=== PATIENT | female | born 1970 | race Caucasian/White ===

== ENCOUNTER 2017-03-06 21:20 | Emergency (ER) | payer OTHER ==
[2017-03-06] MEDS ORDERED: Sodium Chloride 0.9% 10 ML Syringe FLUSH PRN (21:35)
[2017-03-06] MEDS ORDERED: Ondansetron 4 MG/2 ML SDV IVPUSH ONE (21:37)
[2017-03-06] MEDS ORDERED: Sodium Chloride 0.9% 1,000 ML IV SCH (21:45)
--- NOTE | 2017-03-06 21:48 | EDM.PDOC ---
ED HPI HEADACHE COMPLAINT - General Chief Complaint: Headache Stated Complaint: Headache Time Seen by Provider: 03/06/17 21:33 Source of Information: Reports: Patient, Family, RN, RN notes reviewed History Limitations: Reports: No limitations - History of Present Illness INITIAL COMMENTS - FREE TEXT/NARRATIVE: Patient presents to the emergency room at [facility] complaining of a headache, nausea, and photophobia. The patient states that the headache began earlier this morning. The patient states the headache began in the frontal region and has progressed to a generalized headache. The patient states that this is the worst headache ever. The patient has a long-standing history of headaches/migraines. The patient is currently taking Imitrex. The patient did take an Imitrex today which did not help. The patient states that her vision is blurry and she has concurrent photophobia. The patient feels very nauseated. The patient has not vomited. The patient states that her balance is off. The patient has required assistance with ambulation today. The patient complains of severe dizziness that is very positional. 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: Other medication(s) (Imitrex) - Related Data Allergies/ADRs: Allergies Allergy/AdvReac Type Severity Reaction Status Date / Time erythromycin base Allergy Nausea and Verified 03/06/17 21:39 [Erythromycin Base] Vomiting hydrocodone Allergy Headache Verified 03/06/17 21:39 latex Allergy Swelling Verified 03/06/17 21:39 Penicillins Allergy Nausea and Verified 03/06/17 21:39 Vomiting Home Meds: Home Meds Cholecalciferol (Vitamin D3) [Vitamin D] 1,000 unit PO DAILY 08/18/14 [History] ClonazePAM [KlonoPIN] 1 mg PO BID 08/18/14 [History] Cyanocobalamin (Vitamin B-12) [Vitamin B-12] 500 mcg PO DAILY 08/18/14 [History] Fish Oil/Borage/Flax/Om3,6,9#1 [[place] 3-6-9 Complex Softgel] 1 each PO DAILY 10/ 10/14 [History] Gluc HCl/Csa/Savage Hy/Hyalur Ac [Glucosamine Chondroitin] 1 each PO DAILY [History] Multivitamin [Multivitamins] 1 each PO DAILY 08/18/14 [History] SUMAtriptan Succinate [Imitrex] 100 mg PO Q6HR PRN 08/18/14 [History] traZODone 300 mg PO BEDTIME 08/18/14 [History] Celecoxib [CeleBREX] 100 mg PO BID 10/16/16 [History] buPROPion [Wellbutrin XL] 150 mg PO BEDTIME 10/16/16 [History] Social & Family History - Family History Family Medical History: Noncontributory - Tobacco Use Smoking Status *Q: Current Every Day Smoker Years of Tobacco use: 30 Packs/Tins Daily: 1 - Alcohol Use Days Per Week of Alcohol Use: 0 - Recreational Drug Use Recreational Drug Use: No ED ROS GENERAL - Review of Systems Review Of Systems: See Below Constitutional: Reports: weakness, decreased appetite. Denies: fever, chills HEENT: Reports: Eye pain, Vertigo, Vision change Respiratory: Denies: Shortness of Breath, Cough Cardiovascular: Denies: Chest pain, Palpitations GI/Abdominal: Reports: Nausea. Denies: Abdominal pain, Diarrhea, Vomiting Skin: Reports: no symptoms Neurological: Reports: Dizziness, Headache, Difficulty Walking, Weakness. Denies: Numbness, Paresthesia, Tingling - Physical Exam Exam: See Below Exam Limited By: No limitations General Appearance: alert, no apparent distress Eye Exam: bilateral eye: EOMI, normal inspection, PERRL Head Exam: atraumatic, normocephalic Neck: supple Respiratory/Chest: no respiratory distress, lungs clear, normal breath sounds Cardiovascular: regular rate, rhythm GI/Abdominal: normal bowel sounds, soft, non tender Neuro Exam (Abbreviated): alert, slow to respond, abnormal gait Skin Exam: Warm, Dry, Intact, Normal color, No rash Course - Vital Signs Last Recorded V/S: Last Vital Signs Temp 36.6 C 03/06/17 21:20 Pulse 74 03/06/17 21:20 Resp 16 03/06/17 21:20 BP 152/75 H 03/06/17 21:20 Pulse Ox 97 03/06/17 21:20 - Orders/Labs/Meds Orders: Active Orders 24 hr Category Date Time Status Head wo Cont [CT] Stat Exams 03/06/17 21:34 Taken BENZODIAZEPINE CONF (LCMSMS) Stat Lab 03/06/17 21:58 Received Sodium Chloride 0.9% [Normal Saline] 1,000 ml Med 03/06/17 21:45 Active IV ASDIRECTED Sodium Chloride 0.9% [Saline Flush] Med 03/06/17 21:35 Active 10 ml FLUSH ASDIRECTED PRN Peripheral IV Insertion Adult [OM.PC] Routine Oth 03/06/17 21:35 Ordered Medication Orders Sodium Chloride (Normal Saline) 1,000 mls @ 999 mls/hr IV ASDIRECTED TOSHA Last Admin: 03/06/17 22:10 Dose: 999 mls/hr Sodium Chloride (Saline Flush) 10 ml FLUSH ASDIRECTED PRN PRN Reason: Keep Vein Open Labs: Laboratory Tests 03/06/17 03/06/17 03/06/17 Range/Units 21:58 21:59 22:08 WBC 9.3 (4.0-10.0) x10^3/uL RBC 4.10 (4.00-5.50) x10^6/uL Hgb 12.2 (12.0-16.0) g/dL Hct 37.0 (33.0-47.0) % MCV 90.2 (78.0-93.0) fL MCH 29.8 (26.0-32.0) pg MCHC 33.0 (32.0-36.0) g/dL RDW Coeff of Carlos 12.2 (10.0-15.0) % Plt Count 229 (130-400) x10^3/uL Neut % (Auto) 59.5 (50.0-80.0) % Lymph % (Auto) 28.8 (25.0-50.0) % [place] % (Auto) 8.4 (2.0-11.0) % Eos % (Auto) 2.8 (0.0-4.0) % Baso % (Auto) 0.5 (0.2-1.2) % ESR 11 (0-21) mm/hr Sodium (136-145) mmol/L Potassium (3.5-5.1) mmol/L Chloride (98-107) mmol/L Carbon Dioxide (21-32) mmol/L BUN (7-18) mg/dL Creatinine (0.55-1.02) mg/dL Est Cr Clr Drug Dosing mL/min Estimated GFR (MDRD) Glucose (74-106) mg/dL Calcium (8.5-10.1) mg/dL C-Reactive Protein (<=0.9) mg/dL Urine Color Yellow (YELLOW) Urine Appearance Cloudy H (CLEAR) Urine pH 6.5 (5.0-8.0) Ur Specific [place] 1.025 Urine Protein Negative (NEGATIVE) mg/dL Urine Glucose (UA) Negative (NEGATIVE) mg/dL Urine Ketones Negative (NEGATIVE) mg/dL Urine Occult Blood Trace-intact H (NEGATIVE) Urine Nitrite Negative (NEGATIVE) Urine Bilirubin Negative (NEGATIVE) Urine Urobilinogen 1.0 (0.2) EU/dL Ur Leukocyte Esterase Negative (NEGATIVE) Urine RBC 5-10 H (NOT SEEN) /HPF Urine WBC 0-5 (NOT SEEN) /HPF Ur Squamous Epith Cells Moderate H (NEGATIVE) /HPF Calcium Oxalate Crystal Many H (NEGATIVE) /HPF Urine Mucus Few H (NEGATIVE) /LPF Urine Opiates Screen Negative (NEGATIVE) Ur Buprenorphine Scrn Negative (NEGATIVE) Ur Oxycodone Screen Negative (NEGATIVE) Urine Methadone Screen Negative (NEGATIVE) Ur Barbiturates Screen Negative (NEGATIVE) Ur Tricyclics Screen Negative (NEGATIVE) Ur Amphetamine Screen Negative (NEGATIVE) U Methamphetamines Scrn Negative (NEGATIVE) Urine MDMA Screen Negative (NEGATIVE) U Benzodiazepines Scrn Positive H (NEGATIVE) U Cocaine Metab Screen Negative (NEGATIVE) U Marijuana (THC) Screen Negative (NEGATIVE) 03/06/17 Range/Units 22:08 WBC (4.0-10.0) x10^3/uL RBC (4.00-5.50) x10^6/uL Hgb (12.0-16.0) g/dL Hct (33.0-47.0) % MCV (78.0-93.0) fL MCH (26.0-32.0) pg MCHC (32.0-36.0) g/dL RDW Coeff of Carlos (10.0-15.0) % Plt Count (130-400) x10^3/uL Neut % (Auto) (50.0-80.0) % Lymph % (Auto) (25.0-50.0) % [place] % (Auto) (2.0-11.0) % Eos % (Auto) (0.0-4.0) % Baso % (Auto) (0.2-1.2) % ESR (0-21) mm/hr Sodium 144 (136-145) mmol/L Potassium 3.7 (3.5-5.1) mmol/L Chloride 108 H (98-107) mmol/L Carbon Dioxide 29 (21-32) mmol/L BUN 18 (7-18) mg/dL Creatinine 0.9 (0.55-1.02) mg/dL Est Cr Clr Drug Dosing 77.11 mL/min Estimated GFR (MDRD) > 60 Glucose 102 (74-106) mg/dL Calcium 8.3 L (8.5-10.1) mg/dL C-Reactive Protein 0.3 (<=0.9) mg/dL Urine Color (YELLOW) Urine Appearance (CLEAR) Urine pH (5.0-8.0) Ur Specific [place] Urine Protein (NEGATIVE) mg/dL Urine Glucose (UA) (NEGATIVE) mg/dL Urine Ketones (NEGATIVE) mg/dL Urine Occult Blood (NEGATIVE) Urine Nitrite (NEGATIVE) Urine Bilirubin (NEGATIVE) Urine Urobilinogen (0.2) EU/dL Ur Leukocyte Esterase (NEGATIVE) Urine RBC (NOT SEEN) /HPF Urine WBC (NOT SEEN) /HPF Ur Squamous Epith Cells (NEGATIVE) /HPF Calcium Oxalate Crystal (NEGATIVE) /HPF Urine Mucus (NEGATIVE) /LPF Urine Opiates Screen (NEGATIVE) Ur Buprenorphine Scrn (NEGATIVE) Ur Oxycodone Screen (NEGATIVE) Urine Methadone Screen (NEGATIVE) Ur Barbiturates Screen (NEGATIVE) Ur Tricyclics Screen (NEGATIVE) Ur Amphetamine Screen (NEGATIVE) U Methamphetamines Scrn (NEGATIVE) Urine MDMA Screen (NEGATIVE) U Benzodiazepines Scrn (NEGATIVE) U Cocaine Metab Screen (NEGATIVE) U Marijuana (THC) Screen (NEGATIVE) Meds: Medications Generic Name Dose Route Start Last Admin Trade Name Freq PRN Reason Stop Dose Admin Sodium Chloride 1,000 mls @ 999 mls/hr 03/06/17 21:45 03/06/17 22:10 Normal Saline IV 999 mls/hr ASDIRECTED TOSHA Administration Sodium Chloride 10 ml 03/06/17 21:35 Saline Flush FLUSH ASDIRECTED PRN Keep Vein Open Discontinued Medications Generic Name Dose Route Start Last Admin Trade Name Ame PRN Reason Stop Dose Admin Chlorpromazine HCl 50 mg 03/06/17 22:37 03/06/17 22:40 Thorazine IM 03/06/17 22:38 50 mg ONETIME ONE Administration Chlorpromazine HCl 50 mg/ 52 mls @ 50 mls/hr 03/06/17 22:27 Sodium Chloride IV 03/06/17 23:29 ONETIME ONE Ondansetron HCl 4 mg 03/06/17 21:37 03/06/17 22:12 Zofran IVPUSH 03/06/17 21:38 4 mg ONETIME ONE Administration - Radiology Interpretation Free Text/Narrative:: See scanned results CT Results Date: 03/06/17 CT Results Time: 22:46 Departure - Departure Time of Disposition: 23:01 Disposition: Home, Self-Care 01 Condition: good Clinical Impression: Vestibular migraine, Nausea Instructions: Migraine Headache, Nausea, Adult, [id number] Referrals: Brianna Rojas PA [Ordering Only Provider] - Forms: ED Department Discharge Additional Instructions: 1. Stay well hydrated and rest 2. May continue taking Imitrex 3. Avoid cigarette smoke and other environmental inhalation irritants 4. Avoid stimulating activities 5. See your Primary as symptoms warrant - Problem List Review Problem List Initiated/Reviewed/Updated: Yes - My Orders Last 24 Hours: My Active Orders 03/06/17 21:34 Head wo Cont [CT] Stat 03/06/17 21:35 Sodium Chloride 0.9% [Saline Flush] 10 ml FLUSH ASDIRECTED PRN Peripheral IV Insertion Adult [OM.PC] Routine 03/06/17 21:45 Sodium Chloride 0.9% [Normal Saline] 1,000 ml IV ASDIRECTED 03/06/17 21:58 BENZODIAZEPINE CONF (LCMSMS) Stat - Assessment/Plan Last 24 Hours: My Active Orders 03/06/17 21:34 Head wo Cont [CT] Stat 03/06/17 21:35 Sodium Chloride 0.9% [Saline Flush] 10 ml FLUSH ASDIRECTED PRN Peripheral IV Insertion Adult [OM.PC] Routine 03/06/17 21:45 Sodium Chloride 0.9% [Normal Saline] 1,000 ml IV ASDIRECTED 03/06/17 21:58 BENZODIAZEPINE CONF (LCMSMS) Stat
[2017-03-06 22:05] VITALS: BP 152/75
[2017-03-06 22:28] LABS: CHLORIDE,CL 108 mmol/L (98-107); SODIUM,NA 144 mmol/L (136-145)
== END 2017-03-06 23:13 | disposition home or self-care (01) ==
LOC: VM.ED 21:20
DX: G43.109 Migraine with aura, not intractable, without status migrainosus (principal); F17.210 Nicotine dependence, cigarettes, uncomplicated; Z88.1 Allergy status to other antibiotic agents; Z88.0 Allergy status to penicillin; Z88.5 Allergy status to narcotic agent; Z91.040 Latex allergy status; Z79.899 Other long term (current) drug therapy
CPT/HCPCS: 36415; 70450; 80048; 80305; 81001; 85025; 85652; 86140; 96361; 96372; 96374; 99284; G0480; J2405; J3230; J7030

== ENCOUNTER 2017-05-06 09:13 | Emergency (ER) | payer OTHER ==
[2017-05-06 09:26] VITALS: BP 121/66
[2017-05-06] MEDS ORDERED: GI Cocktail Oral Solution 30 ML PO ONE (09:48)
[2017-05-06 10:22] LABS: CHLORIDE,CL 106 mmol/L (98-107); SODIUM,NA 141 mmol/L (136-145)
--- NOTE | 2017-05-07 22:35 | ER ---
Date of Service: 05/06/2017 SUBJECTIVE: Shelbie presents to the emergency room with chest pain that she began experiencing approximately 50 minutes prior to coming to the ER. 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 She states that she has been experiencing some discomfort since she took her medications this morning. She noticed that she has had difficulties with swallowing since that time. The patient states that she has a history of costochondritis and states the discomfort is similar to that. Again, she states that she does have difficulties with swallowing water due to the fact that it feels like there is a possible obstruction in her distal esophagus and due to increased discomfort with swallowing. PAST MEDICAL HISTORY: 1. Migraine headaches. 2. Bariatric surgery. REVIEW OF SYSTEMS: Denies any fever, chills, sore throat, congestion, nausea, melena, hematochezia, or hematemesis. Again, she is on nauseated and feels as though she is going to vomit when she swallows. PHYSICAL EXAMINATION: General: This is a 47-year-old female patient, who is in no acute distress. Vital Signs: Temperature is 36.8, pulse rate is 69, blood pressure is 121/66, respiratory rate 16, O2 saturations 95%. Skin: Warm, pink, and dry. HEENT. Head is normocephalic, atraumatic. Mouth, oral mucosa is moist. Lungs: Clear to auscultation. Heart: Regular rate and rhythm. Abdomen: Soft, tender in the epigastrium. There is no masses noted. There is no hepatosplenomegaly noted. Extremities: Without edema. Neurologic: She is alert, oriented, answers all questions appropriately. Her speech is fluent. Her gait is within normal limits. DIAGNOSTIC DATA: A 12-lead EKG was obtained showing a sinus rhythm without any acute ST or T-wave abnormalities. PA and lateral chest x-ray was obtained. There was no evidence of any acute pathology. LABORATORY DATA: WBCs 7.6, hemoglobin is 11.8, platelets are 242. Coags; PT is 9.7, INR is 0.9. Chemistry; sodium is 141, potassium is 4.1, chloride is 106, bicarb is 29, BUN is 20, creatinine is 0.8, glucose is 100, calcium is 9.0, corrected calcium is 9.4, total bilirubin is 0.5. AST is 10, ALT is 16, alkaline phosphatase is 20, troponin is 0.00. EMERGENCY ROOM COURSE: The patient was given a GI cocktail and prior to this was given several glasses of water. She did exhibit great difficulty with swallowing the water and decision was made again to subsequently gave the patient a GI cocktail. She stated that this did help significantly with the discomfort. ASSESSMENT: Esophagitis versus partial esophageal obstruction. PLAN: The patient was advised to take her medications one at a time. I also did advise her to follow up with her primary care provider as she likely will require an evaluation for her difficulties with swallowing with an upper endoscopy. She is to return if she develops any chest pain, shortness of breath or other worrisome signs or symptoms. All questions were answered. MWK: 05/07/2017 15:50:13 MODL: 05/07/2017 22:26:51 /[id number]
== END 2017-05-06 10:51 | disposition home or self-care (01) ==
LOC: VM.ED 09:13
DX: R07.9 Chest pain, unspecified (principal); G43.909 Migraine, unspecified, not intractable, without status migrainosus; Z98.84 Bariatric surgery status
CPT/HCPCS: 36415; 71020; 80053; 84484; 85025; 85610; 93005; 99284; A9270; 99283-GF

== ENCOUNTER 2017-06-05 13:05 | Emergency (ER) | payer OTHER ==
[2017-06-05 13:29] VITALS: BP 126/70
[2017-06-05] MEDS ORDERED: HYDROmorphone 1 MG/ML Syringe IM ONE (13:31)
[2017-06-05] MEDS ORDERED: Diazepam 5 MG Tab PO ONE (14:10)
--- NOTE | 2017-06-05 14:27 | EDM.PDOC ---
ED HPI GENERAL MEDICAL PROBLEM - General Chief Complaint: Lower Extremity Injury/Pain Stated Complaint: TWISTED KNEE Time Seen by Provider: 06/05/17 13:24 Source of Information: Reports: Patient History Limitations: Reports: No Limitations - History of Present Illness INITIAL COMMENTS - FREE TEXT/NARRATIVE: Patient was up on a bed at home trying to do some kind of work or change a light bulb in a light above her bed. She states that she twisted her left knee during this and felt and heard something pop. No prior injury to her left knee. She is unable to bend her knee and comes in with her knee in a brace. She did not hit her head, does not have chest pain, no SOB, no change in LOC, no nausea, vomiting, or abdominal pain. Onset: Today Onset Date: 06/05/17 Location: Reports: Lower Extremity, Left Quality: Reports: Sharp Severity: Moderate Improves with: Reports: Medication Worsens with: Reports: Movement Left Knee Pain Score (Numeric/FACES): 10 - Related Data Allergies Allergy/AdvReac Type Severity Reaction Status Date / Time erythromycin base Allergy Nausea and Verified 06/05/17 13:33 [Erythromycin Base] Vomiting hydrocodone Allergy Headache Verified 06/05/17 13:33 latex Allergy Swelling Verified 06/05/17 13:33 Penicillins Allergy Nausea and Verified 06/05/17 13:33 Vomiting Home Meds: Home Meds Cholecalciferol (Vitamin D3) [Vitamin D] 1,000 unit PO DAILY 08/18/14 [History] ClonazePAM [KlonoPIN] 1 mg PO BID 08/18/14 [History] Cyanocobalamin (Vitamin B-12) [Vitamin B-12] 500 mcg PO DAILY 08/18/14 [History] Fish Oil/Borage/Flax/Om3,6,9#1 [[place] 3-6-9 Complex Softgel] 1 each PO DAILY 08/22 [History] Gluc HCl/Csa/Savage Hy/Hyalur Ac [Glucosamine Chondroitin] 1 each PO DAILY [History] Multivitamin [Multivitamins] 1 each PO DAILY 08/18/14 [History] SUMAtriptan Succinate [Imitrex] 100 mg PO Q6HR PRN 08/18/14 [History] traZODone 300 mg PO BEDTIME 08/18/14 [History] Celecoxib [CeleBREX] 100 mg PO BID 12/08/16 [History] buPROPion [Wellbutrin XL] 150 mg PO BEDTIME 10/16/16 [History] Past Medical History Neurological History: Reports: Migraines - Past Surgical History GI Surgical History: Reports: Bariatric Procedure Social & Family History - Family History Family Medical History: Noncontributory - Tobacco Use Smoking Status *Q: Current Every Day Smoker Years of Tobacco use: 30 Packs/Tins Daily: 0.3 - Alcohol Use Days Per Week of Alcohol Use: 0 - Recreational Drug Use Recreational Drug Use: No Review of Systems - Review of Systems Review Of Systems: See Below Constitutional: Reports: No Symptoms Eyes: Reports: No Symptoms Ears: Reports: No Symptoms Nose: Reports: No Symptoms Mouth/Throat: Reports: No Symptoms Respiratory: Reports: No Symptoms Cardiovascular: Reports: No Symptoms GI/Abdominal: Reports: No Symptoms Genitourinary: Reports: No Symptoms Musculoskeletal: Reports: Leg Pain (left knee pain) Skin: Reports: No Symptoms Neurological: Reports: No Symptoms Psychiatric: Reports: No Symptoms ED EXAM, GENERAL - Physical Exam Exam: See Below Exam Limited By: No Limitations General Appearance: Alert, WD/WN, No Apparent Distress Eye Exam: Bilateral Eye: EOMI, PERRL Head: Atraumatic, Normocephalic Peripheral Pulses: 2+: Posterior Tibial (L), Posterior Tibial (R), Dorsalis Pedis (L), Dorsalis Pedis (R) Extremities: Joint Swelling, Leg Pain, Limited Range of Motion Neurological: Alert, Oriented, CN II-XII Intact Psychiatric: Normal Affect, Normal Mood Skin Exam: Warm, Dry, Intact, Normal Color Lymphatic: No Adenopathy Course - Vital Signs Last Recorded V/S: Last Vital Signs Temp 36.6 C 06/05/17 13:15 Pulse 71 06/05/17 13:15 Resp 16 06/05/17 13:15 BP 126/70 06/05/17 13:15 Pulse Ox 97 06/05/17 13:15 - Re-Assessments/Exams Free Text/Narrative Re-Assessment/Exam: 06/05/17 14:40 x-rays reviewed, no acute fracture process identified Departure - Departure Time of Disposition: 14:35 Disposition: Home, Self-Care 01 Condition: Good Clinical Impression: Sprain of left knee/leg - Discharge Information Instructions: Knee Sprain, [id number], Knee Immobilizer, [id number] Forms: ED Department Discharge Additional Instructions: Follow up with your primary provider next week Over the take ibuprofen, hydrocodone and flexeril as ordered. Elevate your knee and use ice for 30 minute times then remove If you are still experiencing pain and swelling Thursday, certainly call your primary for possible MRI to investigate ligament, cartilage, or other soft tissue injury. You may work; however you should not be lifting or transferring individuals as this can and will further injure your knee. If there is alternative work to be done there, this may be to your benefit to perform these non physical duties until your knee is fully without injury or pain. Please call with any questions or concerns. - Problem List & Annotations (1) Sprain of left knee/leg SNOMED Code(s): 977448966 Code(s): S83.92XA - SPRAIN OF UNSPECIFIED SITE OF LEFT KNEE, INITIAL ENCOUNTER Status: Acute Priority: Low Current Visit: Yes Qualifiers: Encounter type: initial encounter Qualified Code(s): S83.92XA - Sprain of unspecified site of left knee, initial encounter - Assessment/Plan Assessment:: left knee sprain Plan: Follow up with your primary provider next week Over the take ibuprofen, hydrocodone and flexeril as ordered. Elevate your knee and use ice for 30 minute times then remove If you are still experiencing pain and swelling Thursday, certainly call your primary for possible MRI to investigate ligament, cartilage, or other soft tissue injury. You may work; however you should not be lifting or transferring individuals as this can and will further injure your knee. If there is alternative work to be done there, this may be to your benefit to perform these non physical duties until your knee is fully without injury or pain. Please call with any questions or concerns.
== END 2017-06-05 15:05 | disposition home or self-care (01) ==
LOC: VM.ED 13:05
DX: S83.92XA Sprain of unspecified site of left knee, initial encounter (principal); G43.909 Migraine, unspecified, not intractable, without status migrainosus; F17.210 Nicotine dependence, cigarettes, uncomplicated; Z88.1 Allergy status to other antibiotic agents; Z88.5 Allergy status to narcotic agent; Z91.040 Latex allergy status; Z88.0 Allergy status to penicillin; Z98.84 Bariatric surgery status; X50.9XXA Other and unspecified overexertion or strenuous movements or postures, initial encounter; Y92.003 Bedroom of unspecified non-institutional (private) residence as the place of occurrence of the external cause
CPT/HCPCS: 73560; 96372; 99283; A9270; J1170

== ENCOUNTER 2018-08-09 09:47 | Day surgery (SDC) | payer OTHER ==
[~2018-08-09 09:47] MED LIST: Lactated Ringers 1,000 ML IV SCH
[2018-08-09] MEDS ORDERED: Propofol 200 MG/20 ML SDV ONE ×2 (10:00→12:36)
[2018-08-09] MEDS ORDERED: fentaNYL 100 MCG/2 ML SDV ONE (10:00)
[2018-08-09 13:42] VITALS: BP 126/48
--- NOTE | 2018-08-09 13:46 | OR ---
PREOP DIAGNOSIS: Lower abdominal pain. POSTOP DIAGNOSIS: Lower abdominal pain. PROCEDURE PERFORMED: Colonoscopy. INDICATION: The patient is a 48-year-old female, with history of abdominal pain, who presents for colonoscopy for further evaluation. PROCEDURE DETAILS: Procedure done in the endoscopy suite. Sedation was given per Anesthesia. She was placed in left lateral position. First, a rectal exam was done, and was normal. Scope was introduced in the rectum and slowly advanced to the rectum, sigmoid, descending, transverse, and ascending colon until the cecum was reached. The prep was extremely poor and there was a large amount of cellulose material scattered throughout the colon, which made visualization difficult. It would be possible to miss a small polyp during the procedure. Upon reaching the cecum, scope was slowly withdrawn looking all mucosal surface on the way out. No mucosal abnormality or lesions were noted within the scope of a poor prep. FINAL DIAGNOSIS: Sigmoid diverticulosis. Remainder of the exam was normal. BKD: 08/09/2018 12:53:00 MODL: 08/09/2018 13:38:13 /[id number]
== END 2018-08-09 13:50 | disposition home or self-care (01) ==
LOC: VM.SDS 09:47
PROVIDERS: ATTEND Surgery
DX: R10.30 Lower abdominal pain, unspecified (principal); K57.30 Diverticulosis of large intestine without perforation or abscess without bleeding; F41.8 Other specified anxiety disorders; M17.0 Bilateral primary osteoarthritis of knee; K21.9 Gastro-esophageal reflux disease without esophagitis; G47.00 Insomnia, unspecified; G43.009 Migraine without aura, not intractable, without status migrainosus; E66.9 Obesity, unspecified; Z68.30 Body mass index [BMI] 30.0-30.9, adult; Z79.899 Other long term (current) drug therapy; Z88.0 Allergy status to penicillin; Z88.1 Allergy status to other antibiotic agents; Z91.040 Latex allergy status; Z91.048 Other nonmedicinal substance allergy status
CPT/HCPCS: J2704; J3010; J7120

== ENCOUNTER 2019-04-19 20:04 | Emergency (ER) | payer OTHER ==
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
[2019-04-19 21:15] VITALS: BP 136/71
== END 2019-04-19 21:24 | disposition home or self-care (01) ==
LOC: VM.ED 20:04 → EEVIPCON 20:04 → VM.ED 21:24
DX: R45.851 Suicidal ideations (principal); K21.9 Gastro-esophageal reflux disease without esophagitis; M19.90 Unspecified osteoarthritis, unspecified site; F41.9 Anxiety disorder, unspecified; E66.9 Obesity, unspecified; Z88.0 Allergy status to penicillin; Z91.040 Latex allergy status; Z88.8 Allergy status to other drugs, medicaments and biological substances; Z91.09 Other allergy status, other than to drugs and biological substances; Z79.899 Other long term (current) drug therapy
CPT/HCPCS: 99284-GF; 99285

== ENCOUNTER 2019-09-30 20:15 | Emergency (ER) | payer OTHER ==
--- NOTE | 2019-09-30 20:33 | EDM.PDOC ---
ED HPI GENERAL MEDICAL PROBLEM - General Chief Complaint: Lower Extremity Injury/Pain Stated Complaint: foot injury Time Seen by Provider: 09/30/19 20:22 Source of Information: Reports: Patient History Limitations: Reports: No Limitations - History of Present Illness INITIAL COMMENTS - FREE TEXT/NARRATIVE: Patient comes into the emergency department tonight with complaints of left foot pain. Patient was at a local bar and was walking to the jukebox when she tripped over a lip in the floor and fell forward she states that she twisted the top of her foot causing painful sensation right away. She denies hearing any popping sensation but states she did notice pain immediately. He was able to walk in on her own will without assistance but states it is extremely painful. She states she has limited range of motion in the left foot due to the pain and discomfort. She denies any numbness or tingling in that lower extremity she also denies any shooting pain or weakness in that lower extremity. She denies hitting her head or injuring any other part of her body. She admits to having 2 drinks at the bar prior to coming to the ER. Last ate 2 hours ago and last drank any liquid about 15 minutes ago. Onset: Sudden Location: Reports: Lower Extremity, Left Quality: Reports: Sharp, Throbbing Improves with: Reports: Cold Therapy, Immobilization Worsens with: Reports: Movement Associated Symptoms: Reports: No Other Symptoms - Related Data Allergies Allergy/AdvReac Type Severity Reaction Status Date / Time adhesive tape Allergy Rash Verified 09/30/19 20:35 latex Allergy Swelling Verified 09/30/19 20:35 erythromycin base AdvReac Nausea and Verified 09/30/19 20:35 [Erythromycin Base] Vomiting hydrocodone AdvReac Headache Verified 09/30/19 20:35 Penicillins AdvReac Nausea and Verified 09/30/19 20:35 Vomiting Pork/Porcine Containing AdvReac Other Verified 09/30/19 20:35 Products Home Meds: Home Meds Cholecalciferol (Vitamin D3) [Vitamin D] 1,000 unit PO DAILY 08/18/14 [History] Cyanocobalamin (Vitamin B-12) [Vitamin B-12] 500 mcg PO DAILY 08/18/14 [History] SUMAtriptan Succinate [Imitrex] 100 mg PO Q6HR PRN 08/18/14 [History] traZODone 300 mg PO BEDTIME 08/18/14 [History] Celecoxib [CeleBREX] 200 mg PO BID 10/16/16 [History] Pantoprazole Sodium [Protonix] 40 mg PO DAILY 08/04/18 [History] Venlafaxine [Effexor XR] 75 mg PO DAILY 08/04/18 [History] Past Medical History Gastrointestinal History: Reports: GERD 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 Hydrosalpinx ( hysterectomy). History of pelvic pain Musculoskeletal History: Reports: Osteoarthritis Other Musculoskeletal History: Patellofemoral arthralgia of right knee. Impingement syndrome of right hip. Chronic knee pain Neurological History: Reports: Migraines Psychiatric History: Reports: Anxiety, Depression, Other (See Below) Other Psychiatric History: insomnia Endocrine/Metabolic History: Reports: Obesity/BMI 30+ Dermatologic History: Reports: Eczema - Past Surgical History GI Surgical History: Social & Family History - Family History Family Medical History: Noncontributory Review of Systems - Review of Systems Review Of Systems: Comprehensive ROS is negative, except as noted in HPI. Constitutional: Reports: No Symptoms Eyes: Reports: No Symptoms Ears: Reports: No Symptoms Nose: Reports: No Symptoms Mouth/Throat: Reports: No Symptoms Respiratory: Reports: No Symptoms Cardiovascular: Reports: No Symptoms GI/Abdominal: Reports: No Symptoms Genitourinary: Reports: No Symptoms Musculoskeletal: Reports: Foot Pain Skin: Reports: No Symptoms Neurological: Reports: No Symptoms Psychiatric: Reports: No Symptoms ED EXAM, GENERAL - Physical Exam Exam: See Below Exam Limited By: No Limitations General Appearance: Alert, WD/WN, No Apparent Distress Head: Atraumatic, Normocephalic Respiratory/Chest: No Respiratory Distress, Lungs Clear, Normal Breath Sounds, No Accessory Muscle Use, Chest Non-Tender Cardiovascular: Normal Peripheral Pulses, Regular Rate, Rhythm, No Edema, No Gallop, No JVD, No Murmur, No Rub Back Exam: Normal Inspection, Full Range of Motion Extremities: Normal Inspection, Limited Range of Motion (left foot due to pain. Tenderness upon palpation of top of left foot) Neurological: Alert, Oriented, CN II-XII Intact, Normal Cognition Psychiatric: Normal Affect, Normal Mood Skin Exam: Warm, Dry, Intact, Normal Color Course - Orders/Labs/Meds Orders: Active Orders 24 hr Category Date Time Status Foot Comp Min 3V Lt [CR] Stat Exams 09/30/19 20:27 Ordered Departure - Departure Time of Disposition: 21:10 Disposition: Home, Self-Care 01 Condition: Good Clinical Impression: Strain of foot, left Qualifiers: Encounter type: initial encounter Qualified Code(s): S96.912A - Strain of unspecified muscle and tendon at ankle and foot level, left foot, initial encounter - Discharge Information *PRESCRIPTION DRUG MONITORING PROGRAM REVIEWED*: Not Applicable *COPY OF PRESCRIPTION DRUG MONITORING REPORT IN PATIENT JHONNY: Not Applicable Instructions: Muscle Strain, [id number], Elastic Bandage and RICE, Acetaminophen tablets or caplets, Ibuprofen tablets and capsules Forms: ED Department Discharge Additional Instructions: 1. rest 2. Can use the eliu wrap for stability and support for 3-5 days. 3. Can bear weight on that extremity as comfort allows 4. Ice the area for 20 minutes 3-4 times a day 5. When sitting elevate the left lower extremity above the level of the heart to reduce any swelling and discomfort 6. Can use Tylenol or ibuprofen as needed for pain and discomfort 7. Activity and diet as tolerated 8. Follow-up as needed if pain and discomfort continues greater than 10 days 9. X-rays completed in the emergency department today revealed no acute fractures or tissue injuries noted 10. Please call with any questions or concerns - My Orders Last 24 Hours: My Active Orders 09/30/19 20:27 Foot Comp Min 3V Lt [CR] Stat - Assessment/Plan Last 24 Hours: My Active Orders 09/30/19 20:27 Foot Comp Min 3V Lt [CR] Stat Assessment:: 1. left foot pain 2. Left foot strain Plan: 1. Xray of left foot completed in ER. results reviewed with the patient 2. Ice applied to the affected extremity 3. Education regarding RICE, activity, diet, OTC medications, and follow up provided. 4. Eliu wrap provided for comfort and support. 5. All questions and concerns addressed prior to discharge
[2019-09-30 20:37] VITALS: BP 146/78; PULSE 77
[2019-09-30] MEDS ORDERED: Ketorolac 30 MG/ML SDV IM ONE (21:02)
--- NOTE | 2019-09-30 21:05 | CR ---
[id number] RAD/RAD Foot Left 3V Min Exam: RAD Foot Left 3V Min Indication:FALL/TWIST Comparison: No prior imaging for comparison. Discussion: Changes of osteoarthritis throughout the foot. No fracture or dislocation. Impression: No acute findings. Ger Migule MD 09/30/19 9228 Thank you for allowing us to participate in the care of your patient.
== END 2019-09-30 21:15 | disposition home or self-care (01) ==
LOC: VM.ED 20:15
DX: S96.912A Strain of unspecified muscle and tendon at ankle and foot level, left foot, initial encounter (principal); K21.9 Gastro-esophageal reflux disease without esophagitis; F41.9 Anxiety disorder, unspecified; F32.9 Major depressive disorder, single episode, unspecified; E66.9 Obesity, unspecified; Z79.899 Other long term (current) drug therapy; Z88.0 Allergy status to penicillin; Z88.6 Allergy status to analgesic agent; Z88.1 Allergy status to other antibiotic agents; Z91.030 Bee allergy status; Z91.09 Other allergy status, other than to drugs and biological substances; Z68.23 Body mass index [BMI] 23.0-23.9, adult; W01.0XXA Fall on same level from slipping, tripping and stumbling without subsequent striking against object, initial encounter; Y92.511 Restaurant or cafe as the place of occurrence of the external cause
CPT/HCPCS: 73630-LT; 96372; 99283-25; 99283-GF; J1885

== ENCOUNTER 2020-04-30 15:24 | Emergency (ER) | payer OTHER ==
--- NOTE | 2020-04-30 15:50 | CT ---
[id number] CT/CT Head Stroke Protocol EXAM: CT Head Stroke Protocol CLINICAL DATA: STROKE CODE. COMPARISON STUDY: February 2017. FINDINGS: No intracranial hemorrhage, extra-axial fluid collection, mass, or acute ischemia. No hydrocephalus. Paranasal sinuses and mastoid air cells are clear. IMPRESSION: Normal examination of the brain. Results relayed to Doug Jordan at time of dictation. Ger Miguel MD 04/30/20 1542 Thank you for allowing us to participate in the care of your patient.
[2020-04-30 15:57] LABS: CHLORIDE,CL 106 mmol/L (98-107); SODIUM,NA 141 mmol/L (136-145)
--- NOTE | 2020-04-30 15:57 | EDM.PDOC ---
ED HPI GENERAL MEDICAL PROBLEM - General Chief Complaint: General Stated Complaint: STROKE CODE Time Seen by Provider: 04/30/20 15:25 Source of Information: Reports: Patient, EMS History Limitations: Reports: No Limitations - History of Present Illness Onset: Sudden Duration: Hour(s): Location: Reports: Face, Lower Extremity, Left, Lower Extremity, Right Associated Symptoms: Reports: No Other Symptoms - Related Data Allergies Allergy/AdvReac Type Severity Reaction Status Date / Time adhesive tape Allergy Rash Verified 09/30/19 20:35 latex Allergy Swelling Verified 09/30/19 20:35 erythromycin base AdvReac Nausea and Verified 09/30/19 20:35 [Erythromycin Base] Vomiting hydrocodone AdvReac Headache Verified 09/30/19 20:35 Penicillins AdvReac Nausea and Verified 09/30/19 20:35 Vomiting Pork/Porcine Containing AdvReac Other Verified 09/30/19 20:35 Products Home Meds: Home Meds Cholecalciferol (Vitamin D3) [Vitamin D] 1,000 unit PO DAILY 08/18/14 [History] Cyanocobalamin (Vitamin B-12) [Vitamin B-12] 500 mcg PO DAILY 08/18/14 [History] SUMAtriptan succinate [Imitrex] 100 mg PO Q6HR PRN 08/18/14 [History] traZODone 300 mg PO BEDTIME 08/18/14 [History] Celecoxib [CeleBREX] 200 mg PO BID 10/16/16 [History] Pantoprazole Sodium [Protonix] 40 mg PO DAILY 08/04/18 [History] Venlafaxine [Effexor XR] 75 mg PO DAILY 08/04/18 [History] Past Medical History Gastrointestinal History: Reports: GERD 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 Hydrosalpinx (hysterectomy). History of pelvic pain Musculoskeletal History: Reports: Osteoarthritis Other Musculoskeletal History: Patellofemoral arthralgia of right knee. Impingement syndrome of right hip. Chronic knee pain Neurological History: Reports: Migraines Psychiatric History: Reports: Anxiety, Depression, Other (See Below) Other Psychiatric History: insomnia Endocrine/Metabolic History: Reports: Obesity/BMI 30+ Dermatologic History: Reports: Eczema - Past Surgical History GI Surgical History: Social & Family History - Family History Family Medical History: Noncontributory ED ROS GENERAL - Review of Systems Review Of Systems: See Below Constitutional: Reports: No Symptoms HEENT: Reports: No Symptoms Respiratory: Reports: No Symptoms Cardiovascular: Reports: No Symptoms Endocrine: Reports: No Symptoms GI/Abdominal: Reports: No Symptoms : Reports: No Symptoms Musculoskeletal: Reports: No Symptoms Skin: Reports: No Symptoms Neurological: Reports: Numbness, Paresthesia, Tingling, Weakness. Denies: Confusion, Dizziness, Headache, Pre-Existing Deficit, Trouble Speaking, Difficulty Walking, Change in Speech Psychiatric: Reports: No Symptoms Hematologic/Lymphatic: Reports: No Symptoms Immunologic: Reports: No Symptoms ED EXAM, NEURO - Physical Exam Exam: See Below Text/Narrative:: Patient is alert and oriented x4 normal conversation logical thought process content Patient has a NIH score of 5 noted pronator sway to the right upper extremity right lower extremity strength graded 5 of 5 on the left 4 5 on the right mild decreased machine iii coremaker strength on the right Spoke with Dr. Durand neurology he recommends giving TPA and transfer the patient he will accept at [address] [facility] Exam Limited By: No Limitations General Appearance: Alert, WD/WN, No Apparent Distress Eye Exam: Bilateral Eye: EOMI, Normal Inspection Ears: Normal External Exam, Normal Canal, Hearing Grossly Normal, Normal TMs Nose: Normal Inspection, Normal Mucosa, No Blood Throat/Mouth: Normal Inspection, Normal Lips, Normal Teeth, Normal Gums, Normal Oropharynx, Normal Voice, No Airway Compromise Head Exam: Atraumatic, Normocephalic Neck: Normal Inspection, Supple, Non-Tender, Full Range of Motion Respiratory/Chest: No Respiratory Distress, Lungs Clear, Normal Breath Sounds, No Accessory Muscle Use, Chest Non-Tender Cardiovascular: Normal Peripheral Pulses, Regular Rate, Rhythm, No Edema, No Gallop, No JVD, No Murmur, No Rub GI/Abdominal: Normal Bowel Sounds, Soft, Non-Tender, No Organomegaly, No Distention, No Abnormal Bruit Neurological: Alert, Normal Mood/Affect, Normal Dorsiflexion, CN II-XII Intact, Normal Plantar Flexion, Normal Reflexes, Oriented x 3. No: No Motor/Sensory Deficits Extremities: Normal Inspection, Normal Range of Motion, Non-Tender, No Pedal Edema, Normal Capillary Refill Psychiatric: Normal Affect, Normal Mood Skin Exam: Warm, Dry, Intact, Normal Color, No Rash Course - Vital Signs Text/Narrative:: BC BMP coags troponin EKG CT head CT head no acute findings Essentially 1 call was called for neuro consult at roughly 1540 - Orders/Labs/Meds Orders: Active Orders 24 hr Category Date Time Status Head wo Cont [CT] Stat Exams 04/30/20 15:31 Taken BASIC METABOLIC PANEL,BMP [CHEM] Routine Lab 04/30/20 15:35 Received INR,PT,PROTHROMBIN TIME [COAG] Routine Lab 04/30/20 15:35 Received PTT,PARTIAL THROMBOPLSTIN TIME [COAG] Routine Lab 04/30/20 15:35 Received TROPONIN I [CHEM] Stat Lab 04/30/20 15:48 Ordered Labs: Laboratory Tests 04/30/20 Range/Units 15:35 WBC 7.5 (4.0-10.0) x10^3/uL RBC 4.37 (4.00-5.50) x10^6/uL Hgb 13.3 D (12.0-16.0) g/dL Hct 38.9 (33.0-47.0) % MCV 89.0 (78.0-93.0) fL MCH 30.4 (26.0-32.0) pg MCHC 34.2 (32.0-36.0) g/dL RDW Coeff of Carlos 12.1 (10.0-15.0) % Plt Count 240 (130-400) x10^3/uL Neut % (Auto) 61.6 (50.0-80.0) % Lymph % (Auto) 25.7 (25.0-50.0) % Holmes % (Auto) 9.2 (2.0-11.0) % Eos % (Auto) 2.8 (0.0-4.0) % Baso % (Auto) 0.7 (0.2-1.2) % Departure - Departure Time of Disposition: 16:00 Disposition: DC/Tfer to Acute Hospital 02 Condition: Good Clinical Impression: Embolic infarction, Numbness, Weakness - Discharge Information *PRESCRIPTION DRUG MONITORING PROGRAM REVIEWED*: No *COPY OF PRESCRIPTION DRUG MONITORING REPORT IN PATIENT JHONNY: No Forms: ED Department Discharge - Problem List & Annotations (1) Embolic infarction SNOMED Code(s): 36899705 Code(s): I74.9 - EMBOLISM AND THROMBOSIS OF UNSPECIFIED ARTERY Status: Acute Current Visit: Yes (2) Numbness SNOMED Code(s): 66100748 Code(s): R20.0 - ANESTHESIA OF SKIN Status: Acute Current Visit: Yes (3) Weakness SNOMED Code(s): 39801140 Code(s): R53.1 - WEAKNESS Status: Acute Current Visit: Yes - My Orders Last 24 Hours: My Active Orders 04/30/20 15:31 Head wo Cont [CT] Stat 04/30/20 15:35 BASIC METABOLIC PANEL,BMP [CHEM] Routine INR,PT,PROTHROMBIN TIME [COAG] Routine PTT,PARTIAL THROMBOPLSTIN TIME [COAG] Routine 04/30/20 15:48 TROPONIN I [CHEM] Stat - Assessment/Plan Last 24 Hours: My Active Orders 04/30/20 15:31 Head wo Cont [CT] Stat 04/30/20 15:35 BASIC METABOLIC PANEL,BMP [CHEM] Routine INR,PT,PROTHROMBIN TIME [COAG] Routine PTT,PARTIAL THROMBOPLSTIN TIME [COAG] Routine 04/30/20 15:48 TROPONIN I [CHEM] Stat
[2020-04-30 16:05] LABS: PTT,PARTIAL THROMBOPLSTIN TIME 27.6 SEC (25.6-32.8)
== END 2020-04-30 16:32 | disposition short-term general hospital (02) ==
LOC: VM.ED 15:24
DX: I74.9 Embolism and thrombosis of unspecified artery (principal); K21.9 Gastro-esophageal reflux disease without esophagitis; M19.90 Unspecified osteoarthritis, unspecified site; F41.9 Anxiety disorder, unspecified; F32.9 Major depressive disorder, single episode, unspecified; E66.9 Obesity, unspecified; Z79.82 Long term (current) use of aspirin; Z91.048 Other nonmedicinal substance allergy status; Z91.040 Latex allergy status; Z88.1 Allergy status to other antibiotic agents; Z88.0 Allergy status to penicillin; Z91.018 Allergy to other foods
CPT/HCPCS: 36415; 37195; 70450; 80048; 84484; 85025; 85610; 85730; 99285; J2997